=== PATIENT | male | born 1960 | race Caucasian/White ===

== ENCOUNTER 2016-09-21 20:40 | Inpatient (IN) | payer OTHER ==
[~2016-09-21] VITALS: Ht 172.7 cm; Wt 76.5 kg
[~2016-09-21 20:40] MED LIST: PRILOSEC 20MG20 MG PO
[2016-09-21] MEDS ORDERED: SEROQUEL XR150 MG PO (20:44)
[2016-09-21] MEDS ORDERED: EFFEXOR XR75 MG/CAP (20:44)
[2016-09-21] MEDS ORDERED: REMERON30 MG PO (20:45)
[2016-09-21] MEDS ORDERED: ZOCOR 20MG20 MG (20:45)
[2016-09-21 21:20] LABS: ADJUSTED CALCIUM 8.1 mg/dL (8.4-10.2); ALBUMIN 4.4 gm/dL (3.5-5.0); BILIRUBIN,TOTAL 0.8 mg/dL (0.0-1.0); CALCIUM 8.4 mg/dL (8.4-10.2); CREATININE, serum 2.08 mg/dL (0.66-1.25); POTASSIUM 3.1 mmol/L (3.4-5.0); TOTAL PROTEIN 7.4 gm/dL (6.4-8.2)
[2016-09-21 21:57] LABS: BASO % 0.2 % (0.0-2.0); EOS % 0.1 % (0-4.0); GRAN # 11.9 (1.4-6.5); GRAN % 75.1 % (42.2-75.2); HEMATOCRIT 36.8 % (42.0-52.0); HEMOGLOBIN 12.7 g/dl (13.5-18.0); LYMPH # 2.2 (1.2-3.4); LYMPH % 14.2 % (20.0-51.0); MEAN CELL VOLUME 86 fl (80.0-100.0); MEAN CORPUSCULAR HEMOGLOBIN 30 pg (27.0-31.0); MEAN CORPUSCULAR HGB CONC 35 g/dl (33.0-37.0); MEAN PLATELET VOLUME 11.1 fl (7.4-10.4); MONO # 1.5 (0.1-0.6); MONO % 9.3 % (1.7-9.3); PLATELET COUNT 322 K/mm3 (130-400); RED BLOOD COUNT 4.29 M/mm3 (4.20-5.60); REDCELL DISTRIBUTION WIDTH-CV 13.8 % (11.5-14.5); WHITE BLOOD COUNT 15.8 K/mm3 (4.8-10.8)
[2016-09-21 22:16] LABS: PROTHROMBIN TIME 11.5 SECONDS (9.7-12.8)
[2016-09-21 22:32] LABS: TROPONIN-I 0.013 ng/mL (0.000-0.034)
[2016-09-22] VITALS (338 sets, daily range): BP systolic 104–154; BP diastolic 69–102; PULSE 89–109; TEMP 98–100.5; O2SAT 70–100
[2016-09-22 03:08] LABS: HEMOGLOBIN 9.2 g/dl (13.5-18.0)
[2016-09-22 03:15] LABS: MAGNESIUM 2.7 mg/dL (1.6-2.3)
[2016-09-22 07:27] LABS: BASO % 0.1 % (0.0-2.0); GRAN # 5.7 (1.4-6.5); GRAN % 67.3 % (42.2-75.2); LYMPH # 1.8 (1.2-3.4); LYMPH % 20.9 % (20.0-51.0); MEAN CELL VOLUME 87 fl (80.0-100.0); MEAN CORPUSCULAR HGB CONC 34 g/dl (33.0-37.0); MEAN PLATELET VOLUME 11.1 fl (7.4-10.4); MONO # 0.9 (0.1-0.6); MONO % 10.7 % (1.7-9.3); RED BLOOD COUNT 2.92 M/mm3 (4.20-5.60); REDCELL DISTRIBUTION WIDTH-CV 13.9 % (11.5-14.5); WHITE BLOOD COUNT 8.4 K/mm3 (4.8-10.8)
[2016-09-22 07:34] LABS: CALCIUM 6.6 mg/dL (8.4-10.2); CREATININE, serum 1.23 mg/dL (0.66-1.25); POTASSIUM 3.5 mmol/L (3.4-5.0)
[2016-09-22 07:42] LABS: HEMATOCRIT 25.4 % (42.0-52.0); HEMOGLOBIN 8.7 g/dl (13.5-18.0); MEAN CORPUSCULAR HEMOGLOBIN 30 pg (27.0-31.0); PLATELET COUNT 214 K/mm3 (130-400)
[2016-09-22 10:38] LABS: AMPHETAMINE URINE NEGATIVE; BARBITURATES URINE NEGATIVE; BENZODIAZEPINES URINE NEGATIVE; BUPRENORPHINE URINE NEGATIVE; HYALINE CAST >12 /lpf; METHADONE URINE NEGATIVE; OPIATES URINE NEGATIVE; OXYCODONE URINE NEGATIVE; PH 6 (5-8); PHENCYCLIDINE URINE NEGATIVE; PROPOXYPHENE URINE NEGATIVE; SQUAMOUS EPITHELIAL 0-2 /hpf; THC CANNABINOIDS URINE NEGATIVE; URINE APPEARANCE Hazy; URINE BACTERIA None Seen /hpf; URINE BILIRUBIN Negative (NEGATIVE); URINE BLOOD Negative (NEGATIVE); URINE COLOR Yellow; URINE GLUCOSE Negative (NEGATIVE); URINE KETONE 1+ (NEGATIVE); URINE RBC None Seen /hpf; URINE UROBILINOGEN Negative (NEGATIVE); URINE WBC None Seen /hpf
[2016-09-22 15:40] LABS: HEMATOCRIT 29.6 % (42.0-52.0); HEMOGLOBIN 9.9 g/dl (13.5-18.0)
[2016-09-22 16:13] LABS: PH 6 (5-8); SQUAMOUS EPITHELIAL 0-2 /hpf; URINE APPEARANCE Turbid; URINE BACTERIA None Seen /hpf; URINE BILIRUBIN Negative (NEGATIVE); URINE BLOOD Negative (NEGATIVE); URINE COLOR Yellow; URINE GLUCOSE Negative (NEGATIVE); URINE KETONE Trace (NEGATIVE); URINE RBC 0-2 /hpf; URINE UROBILINOGEN Negative (NEGATIVE); URINE WBC 0-2 /hpf
[2016-09-23] VITALS (11 sets, daily range): BP systolic 100–150; BP diastolic 56–87; PULSE 78–120; TEMP 98–99
[2016-09-23 07:52] LABS: BASO # 0.1 (0.0-0.2); BASO % 0.6 % (0.0-2.0); EOS # 0.1 (0.0-0.7); EOS % 1.3 % (0-4.0); GRAN # 4.9 (1.4-6.5); GRAN % 55.8 % (42.2-75.2); LYMPH # 2.7 (1.2-3.4); LYMPH % 30.6 % (20.0-51.0); MEAN CELL VOLUME 89 fl (80.0-100.0); MEAN CORPUSCULAR HGB CONC 34 g/dl (33.0-37.0); MEAN PLATELET VOLUME 11.2 fl (7.4-10.4); MONO # 0.8 (0.1-0.6); MONO % 9.1 % (1.7-9.3); PLATELET COUNT 258 K/mm3 (130-400); REDCELL DISTRIBUTION WIDTH-CV 13.3 % (11.5-14.5); WHITE BLOOD COUNT 8.8 K/mm3 (4.8-10.8)
[2016-09-23 07:58] LABS: HEMATOCRIT 27.6 % (42.0-52.0); HEMOGLOBIN 9.3 g/dl (13.5-18.0); MEAN CORPUSCULAR HEMOGLOBIN 30 pg (27.0-31.0)
[2016-09-23 08:05] LABS: ADJUSTED CALCIUM 8.6 mg/dL (8.4-10.2); ALBUMIN 2.9 gm/dL (3.5-5.0); BILIRUBIN,TOTAL 0.5 mg/dL (0.0-1.0); CALCIUM 7.7 mg/dL (8.4-10.2); CREATININE, serum 0.93 mg/dL (0.66-1.25); TOTAL PROTEIN 5.6 gm/dL (6.4-8.2)
[2016-09-24] VITALS (9 sets, daily range): BP systolic 101–165; BP diastolic 56–106; PULSE 66–135; TEMP 97.4–99.6
[2016-09-25] VITALS (13 sets, daily range): BP systolic 112–145; BP diastolic 65–98; PULSE 64–124; TEMP 97.8–98.8
[2016-09-25 18:02] LABS: MEAN CELL VOLUME 88 fl (80.0-100.0); MEAN CORPUSCULAR HGB CONC 34 g/dl (33.0-37.0); MEAN PLATELET VOLUME 10.6 fl (7.4-10.4); PLATELET COUNT 303 K/mm3 (130-400); REDCELL DISTRIBUTION WIDTH-CV 13.9 % (11.5-14.5); WHITE BLOOD COUNT 9.3 K/mm3 (4.8-10.8)
[2016-09-25 18:05] LABS: HEMATOCRIT 27.4 % (42.0-52.0); HEMOGLOBIN 9.2 g/dl (13.5-18.0); MEAN CORPUSCULAR HEMOGLOBIN 30 pg (27.0-31.0)
[2016-09-25 18:12] LABS: ADJUSTED CALCIUM 9.5 mg/dL (8.4-10.2); ALBUMIN 2.9 gm/dL (3.5-5.0); BILIRUBIN,TOTAL 0.4 mg/dL (0.0-1.0); CALCIUM 8.6 mg/dL (8.4-10.2); CREATININE, serum 0.91 mg/dL (0.66-1.25); POTASSIUM 3.3 mmol/L (3.4-5.0); TOTAL PROTEIN 5.6 gm/dL (6.4-8.2)
[2016-09-26 01:59] VITALS: BP 120/66; PULSE 65; TEMP 97.4
[2016-09-26 05:00] VITALS: BP 133/88; PULSE 102
[2016-09-26 08:07] VITALS: BP 127/89; PULSE 114; TEMP 98
[2016-09-26 10:08] VITALS: BP 136/76; PULSE 104; TEMP 98.2
[2016-09-26 12:03] VITALS: BP 126/70; PULSE 112; TEMP 98.4
[2016-09-26 14:18] VITALS: BP 107/58; PULSE 119; TEMP 98.4
== END 2016-09-26 15:26 | disposition home or self-care (01) | DRG 392 ==
LOC: COL.ER 20:40 → IMCU 09-22 00:48 → MEDICAL 09-22 11:23 → IMCU 09-22 11:23 → MEDICAL 09-22 14:05
PROVIDERS: Emergency Medicine; Family Medicine; Internal Medicine Cardiovascular Disease; Internal Medicine Gastroenterology; Nurse Practitioner Family
PROC: 0DJ08ZZ Inspection of Upper Intestinal Tract, Via Natural or Artificial Opening Endoscopic (ICD-10-PCS; principal; 2016-09-22 08:30)
DX: K21.0 Gastro-esophageal reflux disease with esophagitis (principal); D62 Acute posthemorrhagic anemia; N17.9 Acute kidney failure, unspecified; E87.1 Hypo-osmolality and hyponatremia; F10.24 Alcohol dependence with alcohol-induced mood disorder; F33.2 Major depressive disorder, recurrent severe without psychotic features; K22.8 Other specified diseases of esophagus; E87.6 Hypokalemia; J44.9 Chronic obstructive pulmonary disease, unspecified; F17.210 Nicotine dependence, cigarettes, uncomplicated; E86.0 Dehydration
CPT/HCPCS: OP; 90791-AI; 99223-AI; 99233-AI; 99238; C9113; J2060; J2250; J2354; J2405; J3010; J3411; J7030; J7040